=== PATIENT | female | born 1955 | race Caucasian/White ===

== ENCOUNTER 2018-05-11 18:10 | Emergency (ER) | payer OTHER ==
[~2018-05-11] VITALS: Ht 172.7 cm; Wt 62.0 kg
[2018-05-11 18:21] VITALS: BP 108/69
[2018-05-11] MEDS ORDERED: ORPH100T2 PO (19:38)
[2018-05-11] MEDS ORDERED: NAPR-56 PO (19:38)
[2018-05-11] MEDS ORDERED: ketorolac tromethamine 15mg/ml inj. IM ONE (19:40)
== END 2018-05-11 19:45 | disposition home or self-care (01) ==
LOC: ER 18:11
DX: S16.1XXA Strain of muscle, fascia and tendon at neck level, initial encounter (principal); S80.12XA Contusion of left lower leg, initial encounter; S80.11XA Contusion of right lower leg, initial encounter; S60.221A Contusion of right hand, initial encounter; S80.212A Abrasion, left knee, initial encounter; M54.9 Dorsalgia, unspecified; Z79.899 Other long term (current) drug therapy; V43.52XA Car driver injured in collision with other type car in traffic accident, initial encounter; W22.11XA Striking against or struck by driver side automobile airbag, initial encounter; Y93.89 Activity, other specified; Y92.488 Other paved roadways as the place of occurrence of the external cause; Y99.8 Other external cause status
CPT/HCPCS: 29125; 73100; 73130; 99283